=== PATIENT | male | born 1985 | race Caucasian/White ===

== ENCOUNTER 2017-12-05 19:14 | Emergency (ER) | payer OTHER ==
[~2017-12-05] VITALS: Ht 180.3 cm; Wt 83.9 kg
--- NOTE | 2017-12-05 19:29 | ED.ADGEN ---
Adult General Chief Complaint Chief Complaint ".. I slipped and fell .. and caught myself with my right wrist... 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 Patient has obvious edema and pain in right wrist. Distal neurovascular intact. FOOSH type injury mechanism. Patient has some mild tenderness on loading of right thumb. Most pain is localized in right radius distal. No upper arm tenderness. No other injuries reported. Patient normally healthy. Patient is right-hand dominant. Review of Systems Review of Systems Constitutional: Denies fever or chills [] Eyes: Denies change in visual acuity, redness, or eye pain [] HENT: Denies nasal congestion or sore throat [] Respiratory: Denies cough or shortness of breath [] Cardiovascular: No additional information not addressed in HPI [] GI: Denies abdominal pain, nausea, vomiting, bloody stools or diarrhea [] : Denies dysuria or hematuria [] Musculoskeletal: Denies back pain or joint pain []with the exception of right wrist pain Integument: Denies rash or skin lesions [] Neurologic: Denies headache, focal weakness or sensory changes [] Endocrine: Denies polyuria or polydipsia [] All other systems were reviewed and found to be within normal limits, except as documented in this note. Family History Family History Noncontributory Current Medications Current Medications Current Medications Medications (Trade) Dose Ordered Sig/Jo Start Time Stop Time Status Last Admin Dose Admin Hydrocodone Bitartrate/ Ibuprofen (Vicoprofen 7.5-200) 2 tab 1X ONCE 12/05/17 19:45 12/05/17 19:46 DC 12/05/17 19:39 2 TAB Allergies Allergies Allergies Coded Allergies Type Severity Reaction Last Updated Verified No Known Drug Allergies 12/05/17 No Physical Exam Physical Exam Constitutional: Well developed, well nourished, moderate distress, non-toxic appearance. [] HENT: Normocephalic, atraumatic, bilateral external ears normal, oropharynx moist, no oral exudates, nose normal. [] Eyes: PERRLA, EOMI, conjunctiva normal, no discharge. [] Neck: Normal range of motion, no tenderness, supple, no stridor. [] Cardiovascular:Heart rate regular rhythm, no murmur [] Lungs & Thorax: Bilateral breath sounds clear to auscultation [] Abdomen: Bowel sounds normal, soft, no tenderness, no masses, no pulsatile masses. [] Skin: Warm, dry, no erythema, no rash. [] Back: No tenderness, no CVA tenderness. [] Extremities: No tenderness, no cyanosis, no clubbing, ROM intact, no edema. [] Except findings of right wrist as per history of present illness Neurologic: Alert and oriented X 3, normal motor function, normal sensory function, no focal deficits noted. [] Psychologic: Affect normal, judgement normal, mood normal. [] EKG EKG [] Radiology/Procedures Radiology/Procedures My interpretation x-ray shows a comminuted impacted fracture of right wrist[] radius. Minimal displacement and angulation. There is some noted edema Course & Med Decision Making Course & Med Decision Making Pertinent Labs and Imaging studies reviewed. (See chart for details) Distal neurovascular intact after application of thumb spica. Patient to keep wrist elevated, ice, rest, splint, and take [id number] Tylenol and ibuprofen for pain. For marked discomfort may take Vicoprofen up to 4 times a day. Patient issued a disc of x-ray for follow-up at [facility] with orthopedics [] Final Impression Final Impression 1. Right radius fracture[] Problems: Dragon Disclaimer Dragon Disclaimer This electronic medical record was generated, in whole or in part, using a voice recognition dictation system. LEOPOLDO REZA MD Dec 05, 2017 19:29
[2017-12-05] MEDS ORDERED: HYDR-79 PO (19:38)
[2017-12-05] MEDS ORDERED: HYDROcodon/IBUPROFEN 7.5/200MG 1 TAB TABLET PO ONE (19:45)
[2017-12-05 20:34] VITALS: BP 119/78
--- NOTE | 2017-12-06 10:00 | RAD ---
Right wrist, 3 views, 12/05/2017: History: Fall, wrist pain There is a transverse fracture of the distal radius at the level of the old fused epiphyseal plate. The fracture is nondisplaced. The carpal bones are intact. No other bony abnormality is detected. There is moderate soft tissue swelling. IMPRESSION: Acute nondisplaced distal radial fracture. Note: The findings were called to personnel in the [facility] at 9:57 AM on 12/06/2017.
== END 2017-12-05 20:45 | disposition home or self-care (01) ==
LOC: ER 19:14
DX: S52.91XA Unspecified fracture of right forearm, initial encounter for closed fracture (principal); W00.0XXA Fall on same level due to ice and snow, initial encounter; Y93.89 Activity, other specified; Y99.8 Other external cause status; Y92.89 Other specified places as the place of occurrence of the external cause
CPT/HCPCS: 29125; 73110; 99284-25